=== PATIENT | female | born 2005 | race Caucasian/White ===

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

== ENCOUNTER 2024-10-13 14:41 | Outpatient (OUT) | payer OTHER, SELFPAY ==
--- NOTE | 2024-10-13 14:54 | XR_ITS ---
The [address] [address] Patient Name: DALE WATKINS MRN: [id number] date: 2005 Sex: F Assigned Patient Location: RAD Current Patient Location: [facility] Accession/Order Number: [id number] Exam Date: 10/13/2024 15:11 Report Date: 10/13/2024 15:11 At the request of: CHRISTIAN RICHTER MD Procedure: XR chest 2V Chest 2 views CLINICAL HISTORY: Chronic Cough COMPARISON: None FINDINGS: Heart normal size. Lungs are clear. No free air. XR/XR chest 2V IMPRESSION: NO ACUTE CARDIOPULMONARY ABNORMALITY. Impression dictated by: Antony Majano Jr., DRupeshORupesh 10/13/2024 3:11 PM Dictation Location: [place] [address] Electronically authenticated by: [id number] Y Date: 10/13/2024 15:11
== END 2024-10-13 14:42 | disposition home or self-care (01) ==
PROVIDERS: PCP Family Medicine; Visit Provider Family Medicine
DX: R05.3 Chronic cough (principal); Z72.0 Tobacco use
CPT/HCPCS: 71046